=== PATIENT | female | born 1950 | race Caucasian/White ===

== ENCOUNTER → 2017-03-08 13:29 | Outpatient (CLI) | payer MEDICARE, OTHER ==
[2014-02-02 00:42] VITALS: BMI 31.2
[~2017-03-08 13:29] MED LIST: BAYER CHEWABLE81 MG PO; CIPRO500 MG PO; CYMBALTA60 MG PO; ELAVIL25 MG PO; LOPRESSOR25 MG PO; LYRICA150 MG PO; MELATONIN 3 MG1 TAB PO; NORCO 10/325 TA1 TA1; PAXIL20 MG PO; PLAVIX75 MG PO; ROBAXIN-750750 MG PO; ZOCOR10 MG PO; ZOCOR40 MG PO
== END | disposition home or self-care (01) ==
LOC: D.CT 13:29
DX: R06.00 Dyspnea, unspecified (principal)

== ENCOUNTER 2017-03-16 06:37 | Outpatient (CLI) | payer MEDICARE, OTHER ==
[~2017-03-16] VITALS: Ht 154.9 cm; Wt 55.5 kg
[2017-03-16] MEDS ORDERED: CYMBALTA60 MG PO (07:17)
[2017-03-16 07:31] VITALS: BP 114/51; Ht 154.9 cm; Wt 55.5 kg
[2017-03-16 07:49] LABS: BASOPHILS 0.2 % (0-2); EOSINOPHILS 2.2 % (0-7); HEMATOCRIT 36.6 % (36.0-48.0); IMMATURE GRANULOCYTES 0.2 % (0-5); LYMPHOCYTES 8.3 % (15-50); MCH 28.8 pg (26.0-34.0); MCHC 32.8 g/dL (31.0-37.0); MEAN PLATELET VOLUME 10.2 fL (7.4-10.4); MONOCYTES 4.5 % (2-11); NEUTROPHILS 84.6 % (40-80); RBC 4.16 10x6/uL (4.00-5.40); RDW 16.2 % (11.5-14.5); WBC 11.5 10x3/uL (4.8-10.8)
[2017-03-16 07:54] LABS: CALC OSMOLALITY 275 mosm/kg (275-300); CARBON DIOXIDE 26.2 mmol/L (21.0-32.0); CHLORIDE - SERUM 100 mmol/L (98-107); CREATININE - SERUM 0.4 mg/dL (0.6-1.3); PLATELET COUNT 347 10x3/uL (130-400); POTASSIUM - SERUM 5.3 mmol/L (3.5-5.1); SODIUM 136 mmol/L (136-145); UREA NITROGEN 19 mg/dL (7-18); eGFR NON AFRICAN AMERICAN > 90 mL/min (90-120)
[2017-03-16 07:59] LABS: INR 0.87 (0.85-1.17); PROTIME 11.7 SECONDS (11.6-15.0)
[2017-03-16 08:00] LABS: APTT 39.3 SECONDS (22.8-39.4)
[2017-03-16 08:05] LABS: GLUCOSE 138 mg/dL (74-106)
--- NOTE | 2017-03-16 09:40 | NUR ---
RECEIVED FROM RADIOLOGY POST CT GUIDED THORACENTESIS. LEFT BACK DRESSING C/D/I. O2 SAT 92% ON ROOM AIR. DENIES SOB. EXPIRATORY WHEEZE AND CRACKLES ARE SLIGHTLY BETTER THAN PREOP. C/O PAIN IN LEFT BREAST TO SHOULDER OF A "6". RENE IN SPECIALS STATES "FROM PROCEDURE"
[2017-03-16 12:20] LABS: PROTEIN - BODY FLUID 5.2 G/DL
[2017-03-16 14:13] LABS: LYMPH - BF 91 %; MACROPHAGES BF 4 %; MESOTHELIALS BF 3 %; NEUT - BF 2 %
--- NOTE | 2017-03-16 17:37 | NUR ---
1600--KAYLEN CASPER RN WITH [facility] IN WITH PT, OK TO DISCHARGE. RUTHANN JOHNSON 0973--DISCHARGE INSTRUCTIONS GIVEN, PT VERBALIZES UNDERSTANDING. PT OFF UNIT VIA WC. RUTHANN JOHNSON
[2017-03-17 19:11] LABS: ACID FAST SMEAR Negative (()); AFB SPECIMEN PROCESSING Not Indicated (())
== END 2017-03-16 16:25 | disposition home or self-care (01) ==
LOC: D.OPS 06:37 → D.CT 09:00 → D.OPS 09:00
PROVIDERS: General Practice
DX: J90 Pleural effusion, not elsewhere classified (principal)

== ENCOUNTER 2017-04-07 07:08 | Outpatient (CLI) | payer MEDICARE, OTHER ==
[~2017-04-07] VITALS: Ht 154.9 cm; Wt 54.1 kg
[2017-04-07] MEDS ORDERED: VENTOLIN HFA18 GM INH (07:44)
[2017-04-07 07:45] VITALS: BP 120/58; Ht 154.9 cm; Wt 54.1 kg
[2017-04-07 08:48] LABS: BASOPHILS 0.3 % (0-2); EOSINOPHILS 3.9 % (0-7); HEMATOCRIT 36.8 % (36.0-48.0); HEMOGLOBIN 11.9 g/dL (12-16); IMMATURE GRANULOCYTES 0.3 % (0-5); LYMPHOCYTES 8.1 % (15-50); MCH 28.9 pg (26.0-34.0); MCHC 32.3 g/dL (31.0-37.0); MCV 89.3 fL (80.0-100.0); MEAN PLATELET VOLUME 10.3 fL (7.4-10.4); MONOCYTES 5.3 % (2-11); NEUTROPHILS 82.1 % (40-80); PLATELET COUNT 339 10x3/uL (130-400); RBC 4.12 10x6/uL (4.00-5.40); RDW 16.6 % (11.5-14.5); WBC 9.7 10x3/uL (4.8-10.8)
[2017-04-07 08:52] LABS: CALC OSMOLALITY 280 mosm/kg (275-300); CALCIUM 9.1 mg/dL (8.5-10.1); CARBON DIOXIDE 27.8 mmol/L (21.0-32.0); CHLORIDE - SERUM 102 mmol/L (98-107); CREATININE - SERUM 0.4 mg/dL (0.6-1.3); GLUCOSE 123 mg/dL (74-106); POTASSIUM - SERUM 5.3 mmol/L (3.5-5.1); SODIUM 139 mmol/L (136-145); UREA NITROGEN 19 mg/dL (7-18); eGFR NON AFRICAN AMERICAN > 90 mL/min (90-120)
[2017-04-07 09:00] LABS: APTT 38.9 SECONDS (22.8-39.4); INR 0.92 (0.85-1.17); PROTIME 12.2 SECONDS (11.6-15.0)
--- NOTE | 2017-04-07 14:24 | NUR ---
1145 iv dc with cather tip intact
--- NOTE | 2017-04-07 14:33 | NUR ---
1200 VS TAKEN AND PLACED ON CHART
== END 2017-04-07 12:00 | disposition home or self-care (01) ==
LOC: D.OPS 07:08 → D.CT 09:00 → D.OPS 12:00
PROVIDERS: General Practice
DX: J90 Pleural effusion, not elsewhere classified (principal); Z01.812 Encounter for preprocedural laboratory examination

== ENCOUNTER → 2017-08-03 11:51 | Outpatient (CLI) | payer MEDICARE, OTHER ==
[2017-04-07 07:45] VITALS: BMI 22.5
[~2017-08-03 11:51] MED LIST changes: +VENTOLIN HFA18 GM INH
== END | disposition home or self-care (01) ==
LOC: D.RAD 11:51
DX: J90 Pleural effusion, not elsewhere classified (principal)

== ENCOUNTER → 2017-08-17 10:16 | Outpatient (CLI) | payer MEDICARE, OTHER ==
[2017-04-07 07:45] VITALS: BMI 22.5
== END | disposition home or self-care (01) ==
LOC: D.RAD 10:16
DX: C83.50 Lymphoblastic (diffuse) lymphoma, unspecified site (principal)

== ENCOUNTER → 2018-03-30 15:05 | Outpatient (CLI) | payer MEDICARE, OTHER ==
[2017-04-07 07:45] VITALS: BMI 22.5
== END | disposition home or self-care (01) ==
LOC: D.MRI 15:05
DX: C34.32 Malignant neoplasm of lower lobe, left bronchus or lung (principal)

== ENCOUNTER → 2018-04-11 07:34 | Outpatient (CLI) | payer MEDICARE, OTHER ==
[2017-04-07 07:45] VITALS: BMI 22.5
== END | disposition home or self-care (01) ==
LOC: D.RT 07:34
DX: C34.32 Malignant neoplasm of lower lobe, left bronchus or lung (principal)

== ENCOUNTER → 2018-04-18 09:54 | Outpatient (CLI) | payer MEDICARE, OTHER ==
[2017-04-07 07:45] VITALS: BMI 22.5
== END | disposition home or self-care (01) ==
LOC: D.CT 09:54
DX: C34.32 Malignant neoplasm of lower lobe, left bronchus or lung (principal)

== ENCOUNTER → 2018-05-08 07:53 | Outpatient (CLI) | payer MEDICARE, OTHER ==
[2017-04-07 07:45] VITALS: BMI 22.5
== END | disposition home or self-care (01) ==
LOC: D.US 07:53
DX: I65.23 Occlusion and stenosis of bilateral carotid arteries (principal)

== ENCOUNTER 2018-10-25 06:00 | Day surgery (SDC) | payer MEDICARE, OTHER ==
[2018-10-24 14:40] LABS: BASOPHILS 0.8 % (0-2); EOSINOPHILS 12.5 % (0-7); HEMATOCRIT 32.6 % (36.0-48.0); HEMOGLOBIN 10.7 g/dL (12-16); IMMATURE GRANULOCYTES 0.2 % (0-5); LYMPHOCYTES 12.2 % (15-50); MCH 30.1 pg (26.0-34.0); MCHC 32.8 g/dL (31.0-37.0); MCV 91.8 fL (80.0-100.0); MEAN PLATELET VOLUME 9.3 fL (7.4-10.4); MONOCYTES 5.7 % (2-11); NEUTROPHILS 68.6 % (40-80); RBC 3.55 10x6/uL (4.00-5.40); RDW 14.8 % (11.5-14.5); WBC 6.6 10x3/uL (4.8-10.8)
[2018-10-24 14:51] LABS: APTT 48.1 SECONDS (22.8-39.4); INR 1.04 (0.85-1.17); PROTIME 13.1 SECONDS (11.6-15.0)
[2018-10-24 14:54] LABS: CALC OSMOLALITY 275 mosm/kg (275-300); CALCIUM 8.7 mg/dL (8.5-10.1); CARBON DIOXIDE 25.4 mmol/L (21.0-32.0); CHLORIDE - SERUM 100 mmol/L (98-107); CREATININE - SERUM 0.7 mg/dL (0.6-1.3); GLUCOSE 111 mg/dL (74-106); SODIUM 138 mmol/L (136-145); UREA NITROGEN 10 mg/dL (7-18); eGFR NON AFRICAN AMERICAN 88 mL/min (90-120)
[2018-10-24 14:59] LABS: PLATELET COUNT 264 10x3/uL (130-400)
[~2018-10-25] VITALS: Ht 154.9 cm; Wt 49.4 kg
--- NOTE | ~2018-10-25 | OP ---
PATIENT NAME: ONEIDA VILLASEÑOR MEDICAL RECORD: [id number] :52 LOCATION:D.OPS ADMISSION DATE: SURGEON: JARRED GUSMAN MD DATE OF OPERATION: 10/25/2018 PREOPERATIVE DIAGNOSES: 1. Gallstones. 2. Lymphoma. 3. Malignant melanoma. 4. Myasthenia gravis. 5. Adenocarcinoma of the lung. POSTOPERATIVE DIAGNOSES: 1. Gallstones. 2. Lymphoma. 3. Malignant melanoma. 4. Myasthenia gravis. 5. Adenocarcinoma of the lung. PROCEDURE: Laparoscopic cholecystectomy. SURGEON: Jarred Gusman MD FACE BOSS: Janet Minaya APRN REPORT OF PROCEDURE: The patient's abdomen was prepped and draped in sterile fashion. A cutdown was made on the superior aspect of the umbilicus, 0 Vicryls were placed in the fascia bilaterally and the fascia was incised with 15-blade. There was noted to be a small hernia defect with some fatty tissue present within it. This was reduced during this portion of the procedure. We then bluntly entered the abdominal cavity and with a sweeping action, I took down some adhesions of the omentum to the anterior abdominal wall. We then inserted a 12-mm Anais port and the abdomen was insufflated. There were noted to be some adhesions in the right upper quadrant and these were teased down carefully with blunt dissection with the camera. We were able to visualize the liver and gallbladder and a 5-mm trocar was placed in the epigastrium and 2 more 5-mm trocars were placed in the right subcostal region. The gallbladder was distended, but was not acutely inflamed. The cystic artery and cystic duct were dissected free and I had my critical view of safety. These structures were clipped proximally and distally and ligated in standard fashion. The gallbladder was taken off the liver bed using electrocautery and placed in the right upper quadrant. Any bleeding from the liver bed was then treated with electrocautery. At this point, the ports and insufflation were then removed and the gallbladder was taken out through the umbilicus. The umbilical fascia was closed with interrupted 0 Vicryls times 3. The wounds were irrigated out with normal saline and infused with 10 mL of 0.25% Marcaine with epinephrine. The skin incisions were all closed with subcutaneous 5-0 Monocryl and dressed appropriately. COMPLICATIONS: None. CONDITION: Stable. ANESTHESIA: General endotracheal and local. OPERATIVE REPORT [id number] CHARLEENGENI BADILLOLUCIANA Rivas BLOOD LOSS: Minimal. TRANSINT:[id number] Voice Confirmation ID: [id number] DOCUMENT ID: [id number] JARRED GUSMAN MD CC: NINA PARR MD and MCKENZIE PIPER MD [id number] DICTATION DATE: 10/25/18 0855 HOME DAY CARE PROVIDER: 10/25/18 [address] [place] [address]
[~2018-10-25 06:00] MED LIST changes: +OMEPRAZOLE20 M1 PO; +PHENERGAN25 M1 PO; +XANAX0.5 MG PO
[2018-10-25 06:34] VITALS: BP 148/67; Ht 154.9 cm; Wt 49.4 kg
[2018-10-25] MEDS ORDERED: NORCO 10-325 TA1 TAB PO (08:50)
--- NOTE | 2018-10-25 11:00 | NUR ---
PATIENT SITTING IN CHAIR IN ROOM, DRESSED, WAITING ON SON FOR TRANSPORTATION HOME
== END 2018-10-25 11:25 | disposition home or self-care (01) ==
LOC: D.OPS 06:00 → D.PAN 08:00 → D.OPS 11:25
PROVIDERS: Anesthesiology; Surgery
DX: K80.80 Other cholelithiasis without obstruction (principal); C34.90 Malignant neoplasm of unspecified part of unspecified bronchus or lung

== ENCOUNTER 2018-10-28 23:15 | Inpatient (IN) | payer MEDICARE, OTHER ==
[~2018-10-28] VITALS: Ht 154.9 cm; Wt 49.0 kg
[~2018-10-28 23:15] MED LIST changes: +NORCO 10-325 TA1 TAB PO
[2018-10-28 23:53] LABS: BASOPHILS 0.3 % (0-2); IMMATURE GRANULOCYTES 0.1 % (0-5); LYMPHOCYTES 7.8 % (15-50); MCH 30.2 pg (26.0-34.0); MCHC 32.8 g/dL (31.0-37.0); MCV 92.1 fL (80.0-100.0); MEAN PLATELET VOLUME 8.7 fL (7.4-10.4); MONOCYTES 4.4 % (2-11); NEUTROPHILS 84.4 % (40-80); PLATELET COUNT 234 10x3/uL (130-400); RDW 16.3 % (11.5-14.5); WBC 7.7 10x3/uL (4.8-10.8)
[2018-10-28 23:57] LABS: RBC 1.89 10x6/uL (4.00-5.40)
[2018-10-28 23:58] LABS: HEMATOCRIT 17.4 % (36.0-48.0); HEMOGLOBIN 5.7 g/dL (12-16)
[2018-10-29] VITALS (15 sets, daily range): BP systolic 115–157; BP diastolic 42–78; Ht 154.9 cm; Wt 49.0 kg
[2018-10-29 00:06] LABS: APTT 39.2 SECONDS (22.8-39.4); PROTIME 12.7 SECONDS (11.6-15.0)
[2018-10-29 00:07] LABS: ALBUMIN 2.7 g/dL (3.4-5.0); ALKALINE PHOSPHATASE 86 U/L (46-116); ALT (SGPT) 20 U/L (10-68); BILIRUBIN - TOTAL 0.38 mg/dL (0.2-1.3); CALC OSMOLALITY 272 mosm/kg (275-300); CALCIUM 7.7 mg/dL (8.5-10.1); CARBON DIOXIDE 26.9 mmol/L (21.0-32.0); CHLORIDE - SERUM 100 mmol/L (98-107); CREATININE - SERUM 0.6 mg/dL (0.6-1.3); GLUCOSE 118 mg/dL (74-106); POTASSIUM - SERUM 3.4 mmol/L (3.5-5.1); PROTEIN - SERUM 6.9 g/dL (6.4-8.2); SODIUM 136 mmol/L (136-145); UREA NITROGEN 13 mg/dL (7-18); eGFR NON AFRICAN AMERICAN > 90 mL/min (90-120)
[2018-10-29 00:14] LABS: D-DIMER-QUANTITATIVE 5.77 ug/mLFEU (0.20-0.54)
[2018-10-29 00:51] LABS: % SATURATION 16 % (15-55); IRON 44 ug/dl (35-150); TOTAL IRON BIND CAPACITY 263 ug/dl (260-445); UNSAT IRON BIND CAPACITY 219 ug/dl (150-375)
[2018-10-29 00:53] LABS: CREATINE KINASE 51 UL (21-215); PRO BNP 2702 pg/mL (0-125)
[2018-10-29 00:55] LABS: TROPONIN-I 0.883 ng/mL (0.000-0.060)
--- NOTE | 2018-10-29 01:03 | NUR ---
PT BLOOD CHECKED WITH ELIZABETH WILSON PROCEDURE EXPLAINED TO PATIENT, PT INFORMED TO LET STAFF KNOW OF ANY PROBLEMS OR CONCERNS DURING THE TRANSFUSION. PT VOICED UNDERSTANDING OF S/S OF REACTION, AND ADVISED SHE WOULD LET THE NURSING STAFF KNOW OF ANY CHANGES
--- NOTE | 2018-10-29 01:15 | NUR ---
RECEIVED TO FLOOR FROM ER, ORIENTED TO ROOM, FIRST UNIT OF BLOOD HANGING, CALL LIGHT IN REACH, BED LOWEST POSITION, NO S/S OF DISTRESS NOTED, WILL CONTINUE TO MONITOR
--- NOTE | 2018-10-29 04:00 | NUR ---
FIRST UNIT OF PRBC'S GIVEN, FLUSHING THEN GIVING 10MG IV LASIX, THEN STARTING NEXT UNIT
[2018-10-29 05:03] LABS: HEMATOCRIT 20.8 % (36.0-48.0)
[2018-10-29 05:09] LABS: HEMOGLOBIN 6.8 g/dL (12-16)
--- NOTE | 2018-10-29 06:04 | NUR ---
I AGREE WITH THE WATER RESOURCE ENGINEER ASSESSMENT OF THIS PATIENT.
--- NOTE | 2018-10-29 07:30 | NUR ---
SECOND UNIT PRBC COMPLETED. VSS.
--- NOTE | 2018-10-29 08:00 | NUR ---
THIRD UNIT PRBC UP AT THIS TIME. VSS
--- NOTE | 2018-10-29 08:03 | NUR ---
AWAKE AND ALERT. ORIENTED X3. NO C/O AT THIS TIME. LUNGS ARE CLEAR BILATERALLY, NO COUGH NOTED. SKIN IS INTACT WITHOUT REDNESS EXCEPT 5 SMALL INSERTION SITES TO ABDOMEN WHICH ARE CLEAN AND DRY WITHOUT SIGNS OF INFECTION. IV TO LEFT FOREARM IS PATENT WITHOUT REDNESS AT INSERTION SITE. THIRD UNIT OF BLOOD UP AT THIS TIME. VSS.
--- NOTE | 2018-10-29 08:15 | NUR ---
TRANSFUSION CONTINUES WITHOUT COMPLICATIONS. VSS.
[2018-10-29 08:33] LABS: CALC OSMOLALITY 279 mosm/kg (275-300); CALCIUM 7.8 mg/dL (8.5-10.1); CHLORIDE - SERUM 102 mmol/L (98-107); CREATININE - SERUM 0.7 mg/dL (0.6-1.3); GLUCOSE 133 mg/dL (74-106); POTASSIUM - SERUM 3.8 mmol/L (3.5-5.1); SODIUM 139 mmol/L (136-145); UREA NITROGEN 12 mg/dL (7-18); eGFR NON AFRICAN AMERICAN 88 mL/min (90-120)
[2018-10-29 08:34] LABS: BASOPHILS 0.3 % (0-2); EOSINOPHILS 2.7 % (0-7); HEMATOCRIT 21.1 % (36.0-48.0); IMMATURE GRANULOCYTES 0.2 % (0-5); LYMPHOCYTES 8.3 % (15-50); MCH 28.5 pg (26.0-34.0); MCHC 31.8 g/dL (31.0-37.0); MEAN PLATELET VOLUME 9.2 fL (7.4-10.4); MONOCYTES 6.1 % (2-11); NEUTROPHILS 82.4 % (40-80); PLATELET COUNT 231 10x3/uL (130-400); RDW 17.6 % (11.5-14.5); WBC 6.6 10x3/uL (4.8-10.8)
[2018-10-29 08:48] LABS: HEMOGLOBIN 6.7 g/dL (12-16); MCV 89.8 fL (80.0-100.0); RBC 2.35 10x6/uL (4.00-5.40)
--- NOTE | 2018-10-29 10:30 | NUR ---
THIRD UNIT COMPLETED WITHOUT COMPLICATIONS. VSS.
--- NOTE | 2018-10-29 12:25 | NUR ---
REQUESTED AND GIVNE 4MG MORPHHINE SLOW IVP FOR C/O BACK PAIN LEVEL 5. WILL MONITOR.
[2018-10-29 15:45] LABS: HEMATOCRIT 32.2 % (36.0-48.0); HEMOGLOBIN 10.8 g/dL (12-16)
--- NOTE | 2018-10-29 19:45 | NUR ---
WALKING INDEPENDENTLY IN GRUBER. A&O X 4, DENIES DIZZINESS, AWARE OF NPO STATUS AFTER MIDNIGHT. REQUESTS NIGHTLY MEDS AND COFFEE. VERBALIZES SOME PAIN TO BACK AND REQUESTS PAIN MEDICATION.
--- NOTE | 2018-10-29 20:05 | NUR ---
ATE ONLY A FEW BITES OF SUPPER. DENIES NEEDS. NO CHANGES NOTED.
[2018-10-30 04:00] VITALS: BP 157/75
[2018-10-30 04:53] LABS: BASOPHILS 0.3 % (0-2); HEMATOCRIT 32.9 % (36.0-48.0); IMMATURE GRANULOCYTES 0.3 % (0-5); LYMPHOCYTES 6.9 % (15-50); MCH 29.1 pg (26.0-34.0); MCHC 33.4 g/dL (31.0-37.0); MEAN PLATELET VOLUME 9.6 fL (7.4-10.4); NEUTROPHILS 79.5 % (40-80); PLATELET COUNT 215 10x3/uL (130-400); RDW 18.1 % (11.5-14.5); WBC 6.1 10x3/uL (4.8-10.8)
[2018-10-30 05:02] LABS: RBC 3.78 10x6/uL (4.00-5.40)
[2018-10-30 05:06] LABS: CALCIUM 8.1 mg/dL (8.5-10.1); CARBON DIOXIDE 28.5 mmol/L (21.0-32.0); CHLORIDE - SERUM 99 mmol/L (98-107); CREATININE - SERUM 0.6 mg/dL (0.6-1.3); GLUCOSE 94 mg/dL (74-106); SODIUM 137 mmol/L (136-145); eGFR NON AFRICAN AMERICAN > 90 mL/min (90-120)
[2018-10-30 05:23] LABS: CALC OSMOLALITY 271 mosm/kg (275-300); POTASSIUM - SERUM 3.1 mmol/L (3.5-5.1); UREA NITROGEN 6 mg/dL (7-18)
--- NOTE | 2018-10-30 08:30 | NUR ---
OFF UNIT VIA BED FOR PROCEDURE.
--- NOTE | 2018-10-30 08:35 | NUR ---
AWAKE AND ALERT. ORIENTED X3. C/O BACK PAIN THIS AM. WILL MONITOR. LUNGS ARE CLEAR BILATERALLY, OCCASSIONAL PRODUCTIVE COUGH NOTED. SKIN IS INTACT WITHOUT REDNESS. IV TO LEFT FOREARM IS PATENT WITHOUT REDNESS AT INSERTION SITE. DENIES NEEDS.
[2018-10-30 08:37] VITALS: BP 162/88
--- NOTE | 2018-10-30 09:40 | NUR ---
RETURNED FROM EGD. A/O X3. NO C/O AT THIS TIME. VSS.
[2018-10-30 10:04] LABS: APPEARANCE CLEAR (CLEAR); BACTERIA FEW /hpf (NONE SEEN); BILIRUBIN NEGATIVE (NEGATIVE); COLOR YELLOW (YELLOW); EPITHELIAL CELLS OCC /hpf (0-5); GLUCOSE NEGATIVE (NEGATIVE); KETONE NEGATIVE (NEGATIVE); MUCUS <1+ /lpf (NONE SEEN); NITRITE NEGATIVE (NEGATIVE); PROTEIN NEGATIVE (NEGATIVE); WHITE CELLS - URINE 0-5 /hpf (0-5)
[2018-10-30 10:21] LABS: FOLATE (FOLIC ACID) - SERUM 9.1 ng/mL (>3.0)
[2018-10-30 11:58] VITALS: BP 157/104
--- NOTE | 2018-10-30 12:10 | NUR ---
REQUESTED AND GIVEN ONE HYDROCODONE PO FOR C/O BACK PAIN LEVEL 5. WILL MONITOR.
[2018-10-30] MEDS ORDERED: NORCO-10 PO (13:46)
[2018-10-30] MEDS ORDERED: MIRALAX17 GM PO (13:48)
[2018-10-30] MEDS ORDERED: PROTONIX40 MG PO (13:48)
--- NOTE | 2018-10-30 14:27 | NUR ---
LUNCH SERVED IN ROOM. EATS PER SELF
--- NOTE | 2018-10-30 15:25 | MORECARE ---
CASE MANAGEMENT DISCHARGE SUMMARY PATIENT: ONEIDA VILLASEÑOR UNIT: [id number] ADM DATE: 10/29/18 AGE: 68 : 51 SEX: F ROOM/BED: D.221 AUTHOR: CHUYITA WANG PHYSICIAN: REFERRING PHYSICIAN: FORD ASHLEY MD DATE OF SERVICE: 10/30/18 Discharge Plan Patient Name: ONEIDA VILLASEÑOR Facility: [facility]:[place] : 1950 Planned Disposition: Home Anticipated Discharge Date: Discharge Date: Expected LOS: Initial Reviewer: [email or web address] Initial Review Date: 10/29/2018 Generated: 10/30/18 4:24 pm DCPIA - Discharge Planning Initial Assessment Updated by [email or web address]: Hilaria Martinez on 10/30/18 3:24 pm * Is the patient Alert and Oriented? Yes * How many steps to enter\exit or inside your home? * PCP VERONIQUE * Pharmacy [facility] * Preadmission Environment Home with Family * ADLs Independent * Equipment None * List name and contact numbers for known caregivers / representatives who currently or will assist patient after discharge: GASPER (SON) [phone] * Verbal permission to speak to the caregivers and representatives has been obtained from the patient. Yes * Community resources currently utilized None * Additional services required to return to the preadmission environment? No * Can the patient safely return to the preadmission environment? Yes * Has this patient been hospitalized within the prior 30 days at any hospital? No Patient Name: ONEIDA VILLASEÑOR Page 39220 at 1525 All edits/amendments must be made on the electronic document DICTATION DATE: 10/30/18 1524 POSTIE: VINCE 10/30/18 1524 RPT#: [id number] DC DATE: STATUS: ADM IN [facility] [address] [place] [address] END OF REPORT
--- NOTE | 2018-10-30 15:34 | MORECARE ---
CASE MANAGEMENT DISCHARGE SUMMARY PATIENT: ONEIDA VILLASEÑOR UNIT: [id number] ADM DATE: 10/29/18 AGE: 68 : 51 SEX: F ROOM/BED: D.2211 AUTHOR: KATHLEENDOC PHYSICIAN: REFERRING PHYSICIAN: FORD ASHLEY MD DATE OF SERVICE: 10/30/18 Discharge Plan Patient Name: ONEIDA VILLASEÑOR Facility: [facility]:[place] : 1950 Planned Disposition: Home Anticipated Discharge Date: Discharge Date: Expected LOS: Initial Reviewer: [email or web address] Initial Review Date: 10/29/2018 Generated: 10/30/18 4:34 pm Comments DCP- Discharge Planning Updated by [email or web address]: Hilaria Martinez on 10/30/18 2:[address] Patient Name: ONEIDA VILLASEÑOR Admission Status: ER Accout number: [id number] Admission Date: 10-29-2018 : 1950 Admission Diagnosis: Attending: FORD ASHLEY Current LOS: 1 Anticipated DC Date: Planned Disposition: Home Primary Insurance: MEDICARE A & B Discharge Planning Comments: CM met with patient to assess discharge planning needs. Patient lives independently at home and plans to return there today when she is discharged. She stated that her home is safe to return. Her son Gasper will be the one to drive her home. She denies any needs at this time. CM will continue to follow as needed Hydrographical Technical Officer: Hilaria Martinez DCPIA - Discharge Planning Initial Assessment Updated by [email or web address]: Hilaria Martinez on 10/30/18 3:24 pm * Is the patient Alert and Oriented? Yes * How many steps to enter\exit or inside your home? * PCP VERONIQUE * [facility] * Preadmission Environment Home with Family * ADLs Independent * Equipment None * List name and contact numbers for known caregivers / representatives who currently or will assist patient after discharge: GASPER (SON) [phone] * Verbal permission to speak to the caregivers and representatives has been obtained from the patient. Yes * Community resources currently utilized None * Additional services required to return to the preadmission environment? No * Can the patient safely return to the preadmission environment? Yes * Has this patient been hospitalized within the prior 30 days at any hospital? No Last DP export: 10/30/18 2:25 p Patient Name: ONEIDA VILLASEÑOR Page 99182 at 1534 All edits/amendments must be made on the electronic document DICTATION DATE: 10/30/181533 PSYCH ARNP: VINCE 10/30/181533 RPT#: [id number] DC DATE: STATUS: ADM IN [facility] [address] [place] [address] END OF REPORT
--- NOTE | 2018-10-30 15:53 | NUR ---
DISCHARGED TO HOME WITH FAMILY AMBULATORY. DISCHARGE INSTRUCTIONS GIVEN BOTH VERBALLY AND WRITTEN. ALL QUESTIONS ANSWERED. PATIENT VERBALIZED UNDERSTANDING OF SAME. NEEDED PRESCRIPTIONS GIVEN TO PATIENT AND ESCRIBED TO PHARMACY OF CHOICE. ALL BELONGINGS WITH PATIENT.
--- NOTE | 2018-11-05 10:10 | MORECARE ---
CASE MANAGEMENT DISCHARGE SUMMARY PATIENT: ONEIDA VILLASEÑOR UNIT: [id number] ADM DATE: 10/29/18 AGE: 68 : 51 SEX: F ROOM/BED: D.2211 AUTHOR: KATHLEENDOC PHYSICIAN: REFERRING PHYSICIAN: FORD ASHLEY MD DATE OF SERVICE: 11/05/18 Discharge Plan Patient Name: ONEIDA VILLASEÑOR Facility: [facility]:[place] : 1950 Planned Disposition: Home Anticipated Discharge Date: Discharge Date: 10/30/2018 Expected LOS: 0 Initial Reviewer: [email or web address] Initial Review Date: 10/29/2018 Generated: 11/05/18 11:10 am Comments DCP- Discharge Planning Updated by [email or web address]: Hilaria Martinez on 10/30/18 2:[address] Patient Name: ONEIDA VILLASEÑOR Admission Status: ER Accout number: [id number] Admission Date: 10-29-2018 : 1950 Admission Diagnosis: Attending: FORD ASHLEY Current LOS: 1 Anticipated DC Date: Planned Disposition: Home Primary Insurance: MEDICARE A & B Discharge Planning Comments: CM met with patient to assess discharge planning needs. Patient lives independently at home and plans to return there today when she is discharged. She stated that her home is safe to return. Her son Gasper will be the one to drive her home. She denies any needs at this time. CM will continue to follow as needed Development Scientist: Hilaria Martinez DCPIA - Discharge Planning Initial Assessment Updated by [email or web address]: Hilaria Martinez on 10/30/18 3:24 pm * Is the patient Alert and Oriented? Yes * How many steps to enter\exit or inside your home? * PCP VERONIQUE * [facility] * Preadmission Environment Home with Family * ADLs Independent * Equipment None * List name and contact numbers for known caregivers / representatives who currently or will assist patient after discharge: GASPER (SON) [phone] * Verbal permission to speak to the caregivers and representatives has been obtained from the patient. Yes * Community resources currently utilized None * Additional services required to return to the preadmission environment? No * Can the patient safely return to the preadmission environment? Yes * Has this patient been hospitalized within the prior 30 days at any hospital? No Last DP export: 10/30/18 2:34 p Patient Name: ONEIDA VILLASEÑOR Page 68014 at 1010 All edits/amendments must be made on the electronic document DICTATION DATE: 11/05/18 1010 FANCY NEEDLEWORKER: VINCE 11/05/18 1010 RPT#: [id number] DC DATE:10/30/18 STATUS: DIS IN [facility] [address] [place] [address] END OF REPORT
== END 2018-10-30 15:30 | disposition home or self-care (01) | DRG 812 ==
LOC: D.ER 23:15 → D.MS 10-29 00:27 → D.EDHOLD 10-29 00:27 → D.M2 10-29 01:04 → D.MS 10-29 01:05
PROVIDERS: Emergency Medicine; Internal Medicine Gastroenterology; ADMIT Internal Medicine Nephrology
PROC: 0DB68ZX Excision of Stomach, Via Natural or Artificial Opening Endoscopic, Diagnostic (ICD-10-PCS; 2018-10-30)
PROC: 0DB58ZX Excision of Esophagus, Via Natural or Artificial Opening Endoscopic, Diagnostic (ICD-10-PCS; 2018-10-30)
PROC: 0DB98ZX Excision of Duodenum, Via Natural or Artificial Opening Endoscopic, Diagnostic (ICD-10-PCS; principal; 2018-10-30 07:34)
DX: D62 Acute posthemorrhagic anemia (principal); C34.90 Malignant neoplasm of unspecified part of unspecified bronchus or lung; F17.213 Nicotine dependence, cigarettes, with withdrawal; K22.10 Ulcer of esophagus without bleeding; K91.871 Postprocedural hematoma of a digestive system organ or structure following other procedure; I25.10 Atherosclerotic heart disease of native coronary artery without angina pectoris; I10 Essential (primary) hypertension; K44.9 Diaphragmatic hernia without obstruction or gangrene; K29.70 Gastritis, unspecified, without bleeding; Y83.8 Other surgical procedures as the cause of abnormal reaction of the patient, or of later complication, without mention of misadventure at the time of the procedure